=== PATIENT | female | born 1965 | race Caucasian/White ===

== ENCOUNTER → 2018-04-25 | Outpatient (CLI) | payer BC ==
[~2018-04-25] MED LIST: EST1.25T PO; FEXO1TAB40 PO; HYDR-3729 PO; IBUP-1773 PO
--- NOTE | 2018-04-25 17:38 | Diagnostic Imaging Report ---
INDICATION: Routine screening. Comparison is made with prior study from 07/26/2016 and 10/07/2012. 2-D and 3-D bilateral screening mammography was performed. The current study was also evaluated with a Computer Aided Detection (CAD) system. FINDINGS: Both breasts remain heterogeneously dense, limiting the sensitivity of mammography. The parenchymal pattern is stable. No mass or malignant-appearing microcalcifications are seen. The axillae are unremarkable. IMPRESSION: No mammographic features suspicious for malignancy are identified. ACR BI-RADS Category 1: Negative. Result letter will be mailed to the patient. Note: At least 10% of breast cancer is not imaged by mammography. Dictated by: Dictated on workstation # [id number]
== END ==
LOC: RAD 13:10
PROVIDERS: ATTEND Internal Medicine
DX: Z12.31 Encounter for screening mammogram for malignant neoplasm of breast (principal)
CPT/HCPCS: 77067

== ENCOUNTER 2018-05-06 15:25 | Outpatient (CLI) | payer BC | END 2018-05-06 15:57 | disposition home or self-care (01) | LOC: SLEEP 15:25 | PROVIDERS: ATTEND Otolaryngology Otolaryngology/Facial Plastic Surgery | DX: G47.33 Obstructive sleep apnea (adult) (pediatric) (principal) ==

== ENCOUNTER → 2018-05-24 | Outpatient (CLI) | payer BC ==
--- NOTE | 2018-05-24 16:12 | Diagnostic Imaging Report ---
INDICATION: Pelvic pain. TECHNIQUE: Multiple real-time grayscale images were obtained over the pelvis in various projections endovaginally. FINDINGS: The uterus measures 10.2 x 6.4 x 7.5 cm. There are multiple fibroids in the uterus. Largest is seen posteriorly and measures 4.5 cm. Second largest is seen anteriorly and measures 3.1 cm. There is a third anteriorly measuring 1.3 cm. Endometrial thickness is 8 mm. Neither ovary is visualized. There are no obvious adnexal masses. There is no free pelvic fluid. IMPRESSION: Fibroid uterus as described, otherwise unremarkable pelvic ultrasound apart from nonvisualization of the ovaries. Dictated by: Dictated on workstation # [id number]
== END ==
LOC: RAD 14:52
PROVIDERS: ATTEND Obstetrics & Gynecology
DX: D25.9 Leiomyoma of uterus, unspecified (principal); Z68.35 Body mass index [BMI] 35.0-35.9, adult; Z78.0 Asymptomatic menopausal state
CPT/HCPCS: 76830; 76856

== ENCOUNTER 2018-08-15 12:51 | Outpatient (CLI) | payer BC ==
[~2018-08-15] VITALS: Ht 167.6 cm; Wt 100.4 kg
[2018-08-15] MEDS ORDERED: FEXO1TAB43 PO (13:04)
[2018-08-15] MEDS ORDERED: MELA1TAB8 PO (13:04)
[2018-08-15] MEDS ORDERED: MULT-35 PO (13:04)
[2018-08-15 13:08] VITALS: BP 144/89
[2018-08-15 13:58] LABS: BASOPHILS % (AUTO) 1 % (0-10); EOSINOPHILS # (AUTO) 0.4 10^3/uL (0.0-0.3); EOSINOPHILS % (AUTO) 4 % (0-10); HEMATOCRIT 41 % (35-52); HEMOGLOBIN 13.7 G/DL (11.5-16.0); LYMPHOCYTES # (AUTO) 2.4 X 10^3 (1.0-4.0); LYMPHOCYTES % (AUTO) 27 % (12-44); MEAN CORPUSCULAR HEMOGLOBIN 30 PG (25-34); MEAN CORPUSCULAR HGB CONC 34 G/DL (32-36); MEAN CORPUSCULAR VOLUME 91 FL (80-99); MEAN PLATELET VOLUME 9.9 FL (7.4-10.4); MONOCYTES # (AUTO) 0.5 X 10^3 (0.0-1.0); MONOCYTES % (AUTO) 6 % (0-12); NEUTROPHILS # (AUTO) 5.5 X 10^3 (1.8-7.8); NEUTROPHILS % (AUTO) 63 % (42-75); PLATELET COUNT 299 10^3/uL (130-400); RED CELL DISTRIBUTION WIDTH 12.7 % (10.0-14.5); WHITE BLOOD COUNT 8.8 10^3/uL (4.3-11.0)
== END 2018-08-15 14:25 | disposition home or self-care (01) ==
LOC: PREOP 12:51
PROVIDERS: ATTEND Surgery
DX: Z01.812 Encounter for preprocedural laboratory examination (principal); Z11.2 Encounter for screening for other bacterial diseases; R10.9 Unspecified abdominal pain; D25.0 Submucous leiomyoma of uterus
CPT/HCPCS: 36415; 85025; 86850; 86900; 86901; 87081

== ENCOUNTER 2018-08-22 06:00 | Day surgery (SDC) | payer BC ==
[~2018-08-22] VITALS: Ht 167.6 cm; Wt 100.4 kg
[~2018-08-22 06:00] MED LIST changes: +FEXO1TAB43 PO; +MELA1TAB8 PO; +MULT-35 PO
[2018-08-22 06:15] VITALS: BP 118/77
[2018-08-22] MEDS ORDERED: ONDANSETRON 4 MG/2 ML (SDV) Z0FRAN ONE ×3 (06:32→09:00)
[2018-08-22] MEDS ORDERED: proPOfol 200 MG/20 ML (DIPRIVAN) VIAL IV ONE (06:32)
[2018-08-22] MEDS ORDERED: LIDOCAINE PF 2% 5 ML (XYLOCAINE) VIAL ONE (06:32)
[2018-08-22] MEDS ORDERED: ROCURONIUM 10 MG/ML 5 ML SYRINGE IV ONE (06:32)
[2018-08-22] MEDS ORDERED: DEXAMETHASONE 10 MG/ML (DECADRON) 1 ML VIAL ONE (06:32)
[2018-08-22] MEDS ORDERED: SEVOFLURANE (ULTANE) 15 ML INHAL SOLN ONE ×8 (06:32→09:07)
[2018-08-22] MEDS ORDERED: MIDAZOLAM 2 MG/2 ML (VERSED) VIAL ONE (06:33)
[2018-08-22] MEDS ORDERED: fentaNYL INJECTION 100 MCG/2 ML AMP ONE (06:33)
[2018-08-22] MEDS ORDERED: FAMOTIDINE 20MG/2ML IV (PEPCID) ONE (06:40)
[2018-08-22] MEDS ORDERED: SCOPOLAMINE 1.5 MG (TRANSDERM-SCOP) PATCH ONE (06:40)
[2018-08-22] MEDS ORDERED: ceFAZolin 2 GM IV Premixed 50 ML ONE (06:41)
[2018-08-22] MEDS ORDERED: metroNIDAZOLE 500MG/100ML IVPB 100 ML ONE (06:41)
[2018-08-22] MEDS ORDERED: FAMOTIDINE 20MG/2ML IV (PEPCID) IV ONE (06:45)
[2018-08-22] MEDS ORDERED: BUPIVACAINE 0.25% 30 ML (SENSORCAINE) VIAL ONE (06:45)
[2018-08-22] MEDS ORDERED: ONDANSETRON 4 MG/2 ML (SDV) Z0FRAN IV ONE (06:45)
[2018-08-22] MEDS ORDERED: SCOPOLAMINE 1.5 MG (TRANSDERM-SCOP) PATCH TD ONE (07:00)
--- NOTE | 2018-08-22 07:02 | Progress Note-Pre Operative ---
Pre-Operative Progress Note H&P Reviewed The H&P was reviewed, patient examined and no changes noted. Date Seen by Provider: Aug 22, 2018 Time Seen by Provider: 06:55 Date H&P Reviewed: Aug 22, 2018 Time H&P Reviewed: 06:55 Pre-Operative Diagnosis: CPP, Fibroid uterus PAOLA MINER DO Aug 22, 2018 7:02 am
[2018-08-22] MEDS ORDERED: LACTATED RINGERS 1,000 ML IV PRN (07:13)
[2018-08-22] MEDS ORDERED: LACTATED RINGERS 1,000 ML IV SCH ×2 (07:13→09:25)
[2018-08-22] MEDS ORDERED: ceFAZolin 2 GM IV Premixed 50 ML IV ONE (07:15)
[2018-08-22] MEDS ORDERED: metroNIDAZOLE 500MG/100ML IVPB 100 ML IV ONE (07:15)
[2018-08-22] MEDS ORDERED: GLYCOPYRROLATE 0.2 MG/ML (ROBINUL) 2 ML VIAL ONE (08:04)
[2018-08-22] MEDS ORDERED: NEOSTIGMINE 1 MG/ML 5 ML SYRINGE ONE (08:05)
[2018-08-22] MEDS ORDERED: KETOROLAC 30 MG/ML VIAL ONE (09:00)
[2018-08-22] MEDS ORDERED: morphine INJ 10 MG/ML 1ML (SYR OR VIAL) ONE (09:00)
[2018-08-22] MEDS: KETOROLAC 30 MG/ML VIAL IV PRN ×2 (09:05→17:01)
--- NOTE | 2018-08-22 09:27 | Discharge Inst-Women's Service ---
Discharge Inst-Women's Serv Depart Medication/Instructions New, Converted or Re-Newed RX: RX on Chart Consults/Follow Up Additional Follow Up: Yes Orders/Referrals Dr. Vincent in 7-10 days and in 8 weeks Activity Activity: Activity as Tolerated Driving Instructions: No Driving for 1 Week NO SMOKING: NO SMOKING Nothing Inside Vagina: No Douching, No [place], No Tampons Diet Discharge Diet: No Restrictions Symptoms to Report to : Bleeding Excessive, Pain Increased, Fever Over 101 Degrees F, Vaginal Bleeding Increase, Questions/Concerns For Any Problems or Questions: Contact Your Physician Skin/Wound Care Infection Signs and Symptoms: Increased Redness, Foul Odor of Wound, Increased Drainage, Skin Itchy or Has a Rash, Increased Swelling, Temperature Above 101 F Operative Area Clean and Dry: Keep Incision Clean/Dry Stitches/Yessy/Dermabond: Dermabond, Care of Stitches Bathing Instructions: PAOLA Laws DO Aug 22, 2018 09:27
[2018-08-22] MEDS ORDERED: IBUP-844 PO (09:29)
[2018-08-22] MEDS ORDERED: DOCU100C37 PO (09:29)
[2018-08-22] MEDS ORDERED: SIME80TA16 PO (09:29)
[2018-08-22] MEDS ORDERED: HYDR-34 PO (09:29)
[2018-08-22] MEDS ORDERED: CHLORASEPTIC LOZENGE MM PRN (09:30)
[2018-08-22] MEDS ORDERED: DOCUSATE SODIUM 100 MG (COLACE) CAP PO PRN (09:30)
[2018-08-22] MEDS ORDERED: SIMETHICONE 80 MG (MYLICON) CHEW PO PRN (09:30)
[2018-08-22] MEDS ORDERED: ZOLPIDEM 5 MG (AMBIEN) TAB PO PRN (09:30)
[2018-08-22] MEDS ORDERED: MEPERIDINE (DEMEROL) INJ 50 MG/ML IVP ONE (09:30)
[2018-08-22] MEDS ORDERED: morphine INJ 10 MG/ML 1ML (SYR OR VIAL) IVP ONE (09:30)
[2018-08-22] MEDS ORDERED: ONDANSETRON 4 MG/2 ML (SDV) Z0FRAN IVP PRN (09:30)
[2018-08-22] MEDS ORDERED: ONDANSETRON 4 MG/2 ML (SDV) Z0FRAN IV PRN (09:30)
[2018-08-22] MEDS ORDERED: ANTACID SUSP 30 ML UDC (MYLANTA) PO PRN (09:30)
[2018-08-22] MEDS ORDERED: HYDROmorphone 2 MG/ML VIAL (DILAUDID) ONE (09:48)
[2018-08-22] MEDS ORDERED: HYDROmorphone 2 MG/ML VIAL (DILAUDID) IV ONE (10:00)
[2018-08-22 10:40] VITALS: BP 117/71
[2018-08-22 12:15] VITALS: BP 119/78
[2018-08-22 17:03] VITALS: BP 132/84
--- NOTE | 2018-08-22 20:38 | OPERATIVE REPORT ---
DATE OF SERVICE: 08/22/2018 PREOPERATIVE DIAGNOSES: 1. A 53-year-old female with chronic pelvic pain. 2. Dysmenorrhea. 3. Menorrhagia. POSTOPERATIVE DIAGNOSES: 1. A 53-year-old female with chronic pelvic pain. 2. Dysmenorrhea. 3. Menorrhagia. 4. Fibroid uterus. PROCEDURES PERFORMED: Robotic-assisted total laparoscopic hysterectomy and bilateral salpingo-oophorectomy. SURGEON: David Miner DO. SOLUTION DESIGN AND ANALYSIS MANAGER: SHLOMO Miller. ANESTHESIA: General endotracheal. ESTIMATED BLOOD LOSS: 50 mL. URINE OUTPUT: 100 mL clear at the end of the procedure. FLUIDS: 1500 mL of lactated Ringer solution. FINDINGS: A bulky enlarged uterus with a large pedunculated fibroid in the uterine fundus. Dense adhesions of the ovary to the sides of the uterus as well as the broad ligament as well as adhesions of the ovary to the lateral pelvic sidewall. SPECIMEN SENT: Uterus, bilateral fallopian tubes and ovaries. INDICATIONS: This 53-year-old female was a consultation to my office for chronic pelvic pain and heavy menstrual cycles that is carmen to postmenopausal. In preoperative consultation, she was found to be not menopausal yet; however, was continuing to have chronic pelvic pain. We discussed with the patient proceeding with hysterectomy due to the etiology of this pain being likely due to these large fibroid tumors that were able to be seen on imaging studies. Risks of the procedure were discussed with the patient in detail in the preoperative area including risk of bleeding, infection, damage to surrounding structures including but not limited to bowel, bladder, ureter, kidneys, possible need for reoperation, possible risk from anesthesia and even and need for potential future operations. After everything was discussed with the patient in detail, we discussed also the preservation of at least one ovary; however, the decision was made intraoperatively due to dense adhesions and the bleeding that was being ran into during the ovarian sidewall dissection to proceed with removal of bilateral ovaries due to the patient's age of 53 and the proximity to menopause. The patient was okay with this in the preoperative area and was agreeable for me to make a decision depending on my findings. Once that questions was answered as well as consent was obtained, the patient was taken to the operating room. OPERATIVE REPORT IN DETAIL: Once in the operating room, general anesthesia was found to be adequate, she was placed in dorsal lithotomy position, prepped and draped in normal sterile fashion. I first placed a Hernandez catheter using sterile technique. A weighted speculum was inserted to the patient's vagina. A right angle retractor was used to visualize the cervix, which was grasped at 12 o'clock position using a long single-tooth tenaculum. I then placed an #0 Vicryl suture to the anterior lip of the cervix and gently sound the uterine cavity using a uterine sound, was found to be 8 cm. I then removed my tenaculum and used my suture as my retraction point. I then gently dilated the cervix using Hegar dilators to approximately 8 mm at which point, I selected an 8 cm Lorena uterine manipulator tip and a 4 cm colpotomy ring placing this within the endometrial cavity and deployed the balloon and advanced the colpotomy ring around the vaginal fornix. This allows me to manipulate the uterus on bimanual examination, which was adequate. I then performed a change of gloves and took my attention to the abdomen where infraumbilically, I infiltrated this area using 0.25% Marcaine to make an 8 mm incision using a knife and direct a Veress needle through the incision through which correct placement was confirmed using a saline drop test. I proceeded with insufflation using CO2 gas and an opening pressure of 5 mmHg was noted. I then proceeded to maximum pressure of 15 mmHg, at which point I removed the Veress needle and introduced a blunt 8 mm da Carmelina camera trocar. Once this was in place, I am able to confirm intraperitoneal placement using the da Carmelina laparoscope. A brief scanning of the upper abdominal anatomy appears grossly normal. Having the patient placed in steep Trendelenburg, I am able to visualize all the pelvic anatomy as described in my findings above. I made the decision at that point that I am going to proceed with a bilateral salpingo-oophorectomy. I then placed two lateral trocars, both 8 mm trocars approximately 10 cm lateral to my infraumbilical trocar. The skin was then infiltrated using 0.25% Marcaine to make an 8 mm incision and the trocars were placed under direct visualization of the laparoscope. Once these are both in place, I bring in the da Carmelina robot and docked in the appropriate fashion. I used the fenestrated bipolar graspers in the left hand and monopolar connie in the right hand to perform the following dissection. I first isolated the infundibulopelvic ligament on the left side having to lyse some adhesions in the process. Once it is identified and the ureter was identified as well and found to be clear of my dissection plane, I then grasped the infundibulopelvic ligament, bipolar cauterized and transected using the monopolar connie. I then took this dissection down the posterior leaflet of the broad ligament until I encountered the round ligament in which case I bipolar cauterized and transected this using the monopolar connie and then I am able to grasp the entire broad ligament using my graspers and bipolar cauterized and transected using monopolar connie. I take my anterior leaflet dissection around to the anterior vaginal fornix and my posterior leaflet dissection around to the posterior vaginal fornix, which allows me to skeletonize the uterine vessels laterally. I am able to bipolar cauterized and transect them using the monopolar connie and dissect them carefully staying clear of the ureter, which I have in my vision throughout the entire dissection process. I then performed the same dissection on the right side. Once this was done, I created a colpotomy at the 12 o'clock position using the monopolar connie and take this circumferentially around the vaginal fornix amputating the cervix, uterus, bilateral fallopian tubes and ovaries from the vagina. The specimen was then removed through the vagina. I then proceeded with closing the vaginal cuff using 2-0 Vicryl suture in a [id number] fashion, colposuspending them to the uterosacral ligaments. I then closed the remainder of the vaginal cuff using 2-0 V-Loc in a running fashion, after which there was no active bleeding noted from any of my dissection planes. I then copiously irrigated the pelvis using normal saline. There was no active bleeding noted from any of my dissection planes. I undocked the da Carmelina robot and proceeded with the remainder of the case laparoscopically. I placed FloSeal hemostatic agent over all of my planes of dissection, which ensured excellent postoperative hemostasis. I then had the patient taken out of steep Trendelenburg and removed the lateral trocars under direct visualization of the laparoscope. Once this was done, I used my infraumbilical trocar to release insufflation and introduced 10 mL of 0.25% Marcaine into the peritoneal cavity for postoperative pain management. I then removed this trocar as well. I then closed the skin using 4-0 Monocryl in interrupted subcuticular stitches. Dermabond was applied to the incision and Band-Aids were placed over these. All instruments were removed from the patient's vagina except for the Hernandez catheter, which was left in place. Two grams of Ancef and 500 mg of Flagyl were given preoperatively for infection prophylaxis. The patient tolerated the procedure well and sent to recovery area in stable condition. Lap and sponge counts were correct at the end of the procedure. Instrument count was correct as well. Job ID: [id number] DocumentID: [id number] Dictated Date: 08/22/2018 12:18:09 Stenciler Date: 08/22/2018 18:39:37 Dictated By: DAVID MINER DO
[2018-08-22 20:47] VITALS: BP 112/76
[2018-08-22] MEDS: HYDROcodone/APAP 7.5 MG/325 MG (LORTAB, LORCET PLUS) TABLET PO PRN (20:47)
[2018-08-23 00:16] VITALS: BP 95/58
[2018-08-23] MEDS ORDERED: IBUPROFEN 600 MG (MOTRIN) TAB PO PRN (02:15)
[2018-08-23 03:40] VITALS: BP 93/59
[2018-08-23 09:15] VITALS: BP 102/63
--- NOTE | 2018-08-23 09:21 | Anesthesia-General Post-Op ---
General Patient Condition Mental Status/LOC: Same as Preop Cardiovascular: Satisfactory Nausea/Vomiting: Absent Respiratory: Satisfactory Pain: Controlled Complications: Absent Post Op Complications Complications None Follow Up Care/Instructions Patient Instructions None needed. Anesthesia/Patient Condition Patient Condition Patient is doing well, no complaints, stable vital signs, no apparent adverse anesthesia problems. No complications reported per nursing. MALLIKA BARBER CRNA Aug 23, 2018 09:21
[2018-08-23] MEDS: HYDROcodone/APAP 7.5 MG/325 MG (LORTAB, LORCET PLUS) TABLET PO PRN (09:27)
[2018-08-23 11:20] VITALS: BP 102/63
[2018-08-23] MEDS ORDERED: FLU QUADRIvalent (5+ YOA) 2018-2019 (AFLURIA) 0.5 ML IM ONE (14:30)
== END 2018-08-23 11:20 | disposition home or self-care (01) ==
LOC: SDC 06:00 → WS 10:18 → SDC 08-23 11:20
PROVIDERS: ATTEND Obstetrics & Gynecology
DX: N94.6 Dysmenorrhea, unspecified (principal); N92.0 Excessive and frequent menstruation with regular cycle; N80.0 Endometriosis of uterus; N80.1 Endometriosis of ovary; N83.01 Follicular cyst of right ovary; N83.202 Unspecified ovarian cyst, left side; D25.1 Intramural leiomyoma of uterus; D25.2 Subserosal leiomyoma of uterus; K21.9 Gastro-esophageal reflux disease without esophagitis; E66.9 Obesity, unspecified; Z68.35 Body mass index [BMI] 35.0-35.9, adult
CPT/HCPCS: 86850; 86900; 86901; 88307; 94664

== ENCOUNTER → 2019-05-30 | Outpatient (CLI) | payer BC ==
[~2019-05-30] MED LIST changes: +DOCU100C37 PO; +HYDR-34 PO; +IBUP-844 PO; +SIME80TA16 PO
[2019-05-30 10:31] LABS: BASOPHILS % (AUTO) 1 % (0-10); EOSINOPHILS # (AUTO) 0.2 10^3/uL (0.0-0.3); EOSINOPHILS % (AUTO) 3 % (0-10); HEMATOCRIT 43 % (35-52); LYMPHOCYTES # (AUTO) 3.2 X 10^3 (1.0-4.0); LYMPHOCYTES % (AUTO) 40 % (12-44); MEAN CORPUSCULAR HEMOGLOBIN 30 PG (25-34); MEAN CORPUSCULAR HGB CONC 33 G/DL (32-36); MEAN CORPUSCULAR VOLUME 90 FL (80-99); MEAN PLATELET VOLUME 9.5 FL (7.4-10.4); MONOCYTES # (AUTO) 0.5 X 10^3 (0.0-1.0); MONOCYTES % (AUTO) 7 % (0-12); NEUTROPHILS % (AUTO) 50 % (42-75); PLATELET COUNT 296 10^3/uL (130-400); RED CELL DISTRIBUTION WIDTH 13.1 % (10.0-14.5)
[2019-05-30 10:53] LABS: ALBUMIN 4.2 GM/DL (3.2-4.5); BILIRUBIN,TOTAL 0.6 MG/DL (0.1-1.0); CALCIUM 10.1 MG/DL (8.5-10.1); CREATININE SERUM 0.97 MG/DL (0.60-1.30); POTASSIUM 3.9 MMOL/L (3.6-5.0); TOTAL PROTEIN 7.7 GM/DL (6.4-8.2)
--- NOTE | 2019-06-02 08:56 | Diagnostic Imaging Report ---
Indication: Routine screening. Comparison is made with prior mammogram from 04/25/2018 and 07/26/2016. 2-D and 3-D bilateral screening mammography was performed with CAD. Scattered fibroglandular densities are identified bilaterally. The parenchymal pattern is stable. No mass or malignant-appearing microcalcifications are seen. The axilla are unremarkable. Impression: BI-RADS category 1 No mammographic features suspicious for malignancy are identified. ACR BI-RADS Category 1: Negative. Result letter will be mailed to the patient. Note: At least 10% of breast cancer is not imaged by mammography. Dictated by: Dictated on workstation # [id number]
== END ==
LOC: RAD 10:14
PROVIDERS: ATTEND Internal Medicine
DX: Z00.00 Encounter for general adult medical examination without abnormal findings (principal); Z12.31 Encounter for screening mammogram for malignant neoplasm of breast; E78.00 Pure hypercholesterolemia, unspecified; E78.1 Pure hyperglyceridemia; R73.9 Hyperglycemia, unspecified
CPT/HCPCS: 36415; 77067; 80053; 80061; 83036; 84443; 85025

== ENCOUNTER → 2019-09-17 | Outpatient (CLI) | payer BC ==
[2019-09-17 15:19] LABS: BASOPHILS % (AUTO) 0 % (0-10); EOSINOPHILS # (AUTO) 0.2 10^3/uL (0.0-0.3); EOSINOPHILS % (AUTO) 3 % (0-10); HEMATOCRIT 40 % (35-52); HEMOGLOBIN 13.1 G/DL (11.5-16.0); LYMPHOCYTES # (AUTO) 2.7 X 10^3 (1.0-4.0); LYMPHOCYTES % (AUTO) 38 % (12-44); MEAN CORPUSCULAR HEMOGLOBIN 30 PG (25-34); MEAN CORPUSCULAR HGB CONC 33 G/DL (32-36); MEAN CORPUSCULAR VOLUME 90 FL (80-99); MEAN PLATELET VOLUME 9.6 FL (7.4-10.4); MONOCYTES # (AUTO) 0.4 X 10^3 (0.0-1.0); MONOCYTES % (AUTO) 6 % (0-12); NEUTROPHILS # (AUTO) 3.8 X 10^3 (1.8-7.8); NEUTROPHILS % (AUTO) 53 % (42-75); PLATELET COUNT 250 10^3/uL (130-400); RED CELL DISTRIBUTION WIDTH 12.1 % (10.0-14.5); WHITE BLOOD COUNT 7.1 10^3/uL (4.3-11.0)
[2019-09-17 15:45] LABS: ALBUMIN 4.3 GM/DL (3.2-4.5); BILIRUBIN,TOTAL 0.4 MG/DL (0.1-1.0); CALCIUM 9.8 MG/DL (8.5-10.1); POTASSIUM 4.1 MMOL/L (3.6-5.0); TOTAL PROTEIN 7.5 GM/DL (6.4-8.2)
[2019-09-17 15:53] LABS: ERYTHROCYTE SEDIMENTATION RATE 21 MM/HR (0-30)
== END ==
LOC: LAB 15:04
PROVIDERS: ATTEND Internal Medicine
DX: Z00.00 Encounter for general adult medical examination without abnormal findings (principal); R70.0 Elevated erythrocyte sedimentation rate
CPT/HCPCS: 36415; 80053; 82550; 85025; 85652

== ENCOUNTER → 2019-10-15 | Outpatient (CLI) | payer BC ==
[2019-10-15 17:11] LABS: CHOLESTEROL 167 MG/DL (< 200); HDL CHOLESTEROL 60 MG/DL (40-60); TRIGLYCERIDES 259 MG/DL (<150); VLDL CHOLESTEROL 52 MG/DL (5-40)
== END ==
LOC: LAB 04:41
PROVIDERS: ATTEND Internal Medicine
DX: E78.2 Mixed hyperlipidemia (principal)
CPT/HCPCS: 36415; 80061

== ENCOUNTER → 2020-09-02 | Outpatient (CLI) | payer BC ==
[2020-09-02 09:38] LABS: BASOPHILS # (AUTO) 0.1 10^3/uL (0.0-0.1); BASOPHILS % (AUTO) 1 % (0-10); EOSINOPHILS # (AUTO) 0.3 10^3/uL (0.0-0.3); EOSINOPHILS % (AUTO) 4 % (0-10); HEMATOCRIT 43 % (35-52); LYMPHOCYTES % (AUTO) 31 % (12-44); MEAN CORPUSCULAR HEMOGLOBIN 30 pg (25-34); MEAN CORPUSCULAR HGB CONC 33 g/dL (32-36); MEAN CORPUSCULAR VOLUME 91 fL (80-99); MEAN PLATELET VOLUME 9.5 fL (9.0-12.2); MONOCYTES # (AUTO) 0.4 10^3/uL (0.0-1.0); MONOCYTES % (AUTO) 7 % (0-12); NEUTROPHILS # (AUTO) 3.6 10^3/uL (1.8-7.8); NEUTROPHILS % (AUTO) 57 % (42-75); PLATELET COUNT 273 10^3/uL (130-400); WHITE BLOOD COUNT 6.3 10^3/uL (4.3-11.0)
[2020-09-02 10:02] LABS: ALBUMIN 4.3 GM/DL (3.2-4.5); BILIRUBIN,TOTAL 0.6 MG/DL (0.1-1.0); CALCIUM 9.6 MG/DL (8.5-10.1); CREATININE SERUM 0.98 MG/DL (0.60-1.30); POTASSIUM 4.5 MMOL/L (3.6-5.0); TOTAL PROTEIN 7.8 GM/DL (6.4-8.2)
--- NOTE | 2020-09-02 12:40 | Diagnostic Imaging Report ---
Digital mammogram. Bilateral screening This study was compared to the prior exam of 05/30/2019, 04/25/2018 and 07/26/2016. At this time there are no current complaints. The current study was also evaluated with a Computer Aided Detection (CAD) system. FINDINGS: There are scattered fibroglandular densities in both breasts which could obscure a lesion. Overall, there does not appear to have been any significant change when compared to the prior exam. No primary or secondary sign of malignancy is noted. IMPRESSION: There is no radiographic evidence for malignancy ACR BI-RADS Category 1: Negative. Result letter will be mailed to the patient. Note: At least 10% of breast cancer is not imaged by mammography. Dictated by: Dictated on workstation # [id number]
== END ==
LOC: RAD 08:56
PROVIDERS: ATTEND Internal Medicine
DX: Z12.31 Encounter for screening mammogram for malignant neoplasm of breast (principal); Z00.00 Encounter for general adult medical examination without abnormal findings; E78.00 Pure hypercholesterolemia, unspecified; E78.1 Pure hyperglyceridemia
CPT/HCPCS: 36415; 77063; 77067; 80053; 80061; 84443; 85025

== ENCOUNTER → 2020-09-14 | Outpatient (CLI) | payer BC | LOC: CARD 08:40 | PROVIDERS: ATTEND Internal Medicine | DX: R07.9 Chest pain, unspecified (principal) | CPT/HCPCS: 93306 ==

== ENCOUNTER → 2020-09-21 | Outpatient (CLI) | payer BC ==
[~2020-09-21] VITALS: Ht 167 cm; Wt 95.0 kg
[~2020-09-21] MED LIST changes: +CATHETER FLUSH 10 ML SYR IV PRN
[2020-09-21 08:37] VITALS: BP 136/87
--- NOTE | 2020-09-22 13:16 | Cardiology Stress Test Report ---
Stress Test Report Date of Procedure/Referring: Date of Procedure: Sep 22, 2020 PCP Arianna Delarosa DO Admitting Physician Arianna Delarosa DO Indications: Chest pain Baseline Vital Signs Vital Signs Date Time Temp Pulse Resp B/P (MAP) Pulse Ox O2 Delivery O2 Flow Rate FiO2 09/21/20 08:37 83 18 136/87 (103) 99 Room Air Summary: Patient receive a resting and stress dose of Myoview, images were acquired and reviewed in the short axis view, horizontal long axis view and vertical long axis view. TID: 0.96 SSS: 0 SDS: 0 EF: 73 1. No ischemia or infarction on SPECT images 2. Normal left ventricular size, EF 73 percent ROYCE DAMON MD Sep 22, 2020 13:16
== END ==
LOC: CARD 07:00
PROVIDERS: ATTEND Internal Medicine
DX: R07.9 Chest pain, unspecified (principal)
CPT/HCPCS: 78452; 93017; A9502

== ENCOUNTER → 2020-12-16 | Outpatient (CLI) | payer BC ==
[~2020-12-16] MED LIST changes: -CATHETER FLUSH 10 ML SYR IV PRN; +MELA1TAB51 PO; -MELA1TAB8 PO
--- NOTE | 2020-12-16 18:03 | Diagnostic Imaging Report ---
PA and lateral chest at 4:09 PM INDICATION: Shortness of breath COMPARISON: There are no prior exams available for comparison. FINDINGS: The heart size is within normal limits. The lungs are clear. The osseous structures, where visualized, are intact. IMPRESSION: Negative for active disease. Dictated by: Dictated on workstation # [id number]
== END ==
LOC: RAD FS 16:06
PROVIDERS: ATTEND Otolaryngology Otolaryngology/Facial Plastic Surgery
DX: R05 Cough (principal); R06.02 Shortness of breath
CPT/HCPCS: 71046

== ENCOUNTER → 2020-12-29 | Outpatient (CLI) | payer BC ==
[~2020-12-29] MED LIST changes: +CATHETER FLUSH 10 ML SYR IV PRN; +HOLD METFORMIN - RECEIVED CONTRAST 20 ML VIAL IV SCH; +IOHEXOL 350 MG/ML 100 ML (OMNIPAQUE 350) VIAL IV ONE; +NS 100 ML (IVPB) BAG IV ONE
[2020-12-29 13:14] LABS: CREATININE SERUM 1.02 MG/DL (0.60-1.30)
--- NOTE | 2020-12-29 13:58 | Diagnostic Imaging Report ---
PROCEDURE: CT angiography of the chest with contrast. TECHNIQUE: Multiple contiguous axial images were obtained through the chest after uneventful bolus administration of intravenous contrast. 3D reconstructed CTA MIP acquisitions were also performed. Auto Exposure Controls were utilized during the CT exam to meet ALARA standards for radiation dose reduction. INDICATION: Shortness of breath and chest pain. COMPARISON: No prior studies are available for comparison. FINDINGS: Evaluation of the pulmonary arterial system is without evidence of thromboembolism. No filling defects are seen within central, lobar, or segmental branches. The thoracic aorta is normal in caliber. No dissection is identified. No pericardial or pleural fluid is identified. No pulmonary infiltrates, nodules, or masses are seen. Upper abdomen is unremarkable. IMPRESSION: No evidence of pulmonary embolism or thoracic aortic dissection. No acute feature is detected. Dictated by: Dictated on workstation # [id number]
== END ==
LOC: RAD 13:45
PROVIDERS: ATTEND Internal Medicine
DX: R06.02 Shortness of breath (principal); E78.2 Mixed hyperlipidemia; I27.20 Pulmonary hypertension, unspecified
CPT/HCPCS: 36415; 71275; 82565; 84520

== ENCOUNTER → 2021-01-03 | Outpatient (CLI) | payer BC ==
[~2021-01-03] MED LIST changes: -CATHETER FLUSH 10 ML SYR IV PRN; -HOLD METFORMIN - RECEIVED CONTRAST 20 ML VIAL IV SCH; -IOHEXOL 350 MG/ML 100 ML (OMNIPAQUE 350) VIAL IV ONE; -NS 100 ML (IVPB) BAG IV ONE
== END ==
LOC: RT 15:30
PROVIDERS: ATTEND Otolaryngology Otolaryngology/Facial Plastic Surgery
DX: R05 Cough (principal); R06.02 Shortness of breath

== ENCOUNTER → 2021-02-02 | Outpatient (CLI) | payer BC ==
[~2021-02-02] MED LIST changes: +BARIUM for suspension 96% w/w (Vanilla Silq Medium Density) PO ONE; +BARIUM for suspension 98% w/w (Vanilla Silq High Density) PO ONE
--- NOTE | 2021-02-02 13:13 | Diagnostic Imaging Report ---
Indication: Dysphagia. Patient ingested effervescent crystals as well as thin and thick barium and imaging of the esophagus was performed in multiple obliquities. Total of 59 seconds of fluoroscopy time was utilized. Preliminary radiograph of the chest is unremarkable. The esophagus has a smooth contour. No mass or strictures identified. No hiatal hernia or gastroesophageal reflux was demonstrated. IMPRESSION: Unremarkable esophagram. Dictated by: Dictated on workstation # [id number]
== END ==
LOC: RAD 10:03
PROVIDERS: ATTEND Surgery
DX: R13.10 Dysphagia, unspecified (principal)
CPT/HCPCS: 74220

== ENCOUNTER 2021-03-22 05:38 | Outpatient (RCR) | payer BC ==
[~2021-03-22] VITALS: Ht 167.7 cm; Wt 95.0 kg
[~2021-03-22 05:38] MED LIST changes: -BARIUM for suspension 96% w/w (Vanilla Silq Medium Density) PO ONE; -BARIUM for suspension 98% w/w (Vanilla Silq High Density) PO ONE
[2021-03-22] MEDS ORDERED: UBID30CA13 PO (13:10)
[2021-03-22] MEDS ORDERED: PANT20TA18 PO (13:10)
[2021-03-22] MEDS ORDERED: L.AC1CAP6 PO (13:10)
[2021-03-22] MEDS ORDERED: PRAV10TA PO (13:10)
[2021-03-22] MEDS ORDERED: ASPI-1238 PO (13:10)
[2021-03-29] MEDS ORDERED: PANT20TA18 PO (09:49)
== END 2021-06-20 | disposition home or self-care (01) ==
LOC: PREOP 05:38
PROVIDERS: ATTEND Surgery
DX: Z01.818 Encounter for other preprocedural examination (principal)

== ENCOUNTER → 2021-03-25 | Outpatient (CLI) | payer BC ==
[~2021-03-25] MED LIST changes: +ASPI-1238 PO; +L.AC1CAP6 PO; +PANT20TA18 PO; +PRAV10TA PO; +UBID30CA13 PO
== END ==
LOC: LAB FS 12:20
PROVIDERS: ATTEND Surgery
DX: Z01.812 Encounter for preprocedural laboratory examination (principal); Z12.11 Encounter for screening for malignant neoplasm of colon; R13.10 Dysphagia, unspecified; Z20.822 Contact with and (suspected) exposure to COVID-19
CPT/HCPCS: 87635

== ENCOUNTER 2021-03-29 08:06 | Day surgery (SDC) | payer BC ==
[~2021-03-29] VITALS: Ht 167.7 cm; Wt 95.0 kg
[2021-03-29] VITALS (8 sets, daily range): BP systolic 110–122; BP diastolic 59–75
[2021-03-29] MEDS ORDERED: LACTATED RINGERS 1,000 ML IV ONE (08:07)
[2021-03-29] MEDS ORDERED: LACTATED RINGERS 1,000 ML IV STA (08:16)
[2021-03-29] MEDS ORDERED: HURRICAINE EXT TUBE (BENZOCAINE) XX PRN (08:30)
[2021-03-29] MEDS ORDERED: PROPOFOL INJECTION 50 ML IV ONE (09:04)
[2021-03-29] MEDS ORDERED: MIDAZOLAM 2 MG/2 ML (VERSED) VIAL ONE (09:04)
--- NOTE | 2021-03-29 09:48 | Progress Note-Post Operative ---
Post-Operative Progess Note Surgeon (s)/Market News Reporter (s) Surgeon VANITA AMARAL DO Market News Reporter: na Pre-Operative Diagnosis dysphagia, screening colon Post-Operative Diagnosis hiatal hernia, normal colon Procedure & Operative Findings Date of Procedure 03/29/21 Procedure Performed/Findings egd c biopsies, colonoscopy Anesthesia Type per electric stove installer Estimated Blood Loss Estimated blood loss (mL): none Specimens/Packing Specimens Removed antrum, ge VANITA AMARAL DO March 29, 2021 09:48
[2021-03-29] MEDS ORDERED: PANT20TA18 PO (09:49)
--- NOTE | 2021-03-29 09:50 | Discharge Inst-Simple/Standard ---
Discharge Inst-Standard Discharge Medications New, Converted or Re-Newed RX: Transmitted to Pharmacy Patient Instructions/Follow Up Plan of Care/Instructions/FU: 2-3 weeks Chasity Activity as Tolerated: Yes Discharge Diet: Regular Diet VANITA AMARAL DO March 29, 2021 09:50
--- NOTE | 2021-03-29 12:37 | OPERATIVE REPORT ---
DATE OF SERVICE: 03/29/2021 PREOPERATIVE DIAGNOSES: Dysphagia, screening colonoscopy. POSTOPERATIVE DIAGNOSES: Hiatal hernia, normal colon. PROCEDURE: EGD with biopsies, colonoscopy. SURGEON: Vanita Gaspar DO ANESTHESIA: Per WAREHOUSE DISTRIBUTION ASSOCIATE. ESTIMATED BLOOD LOSS: None. COMPLICATIONS: None. SPECIMENS: Antrum and GE junction. INDICATIONS: The patient is a 55-year-old female with dysphagia symptoms on occasion and GERD symptoms and needing screening colonoscopy. She understands risks and benefits of procedure and wishes to proceed. Consent was signed in the chart. DESCRIPTION OF PROCEDURE: The patient was taken to the endoscopy suite, placed in left lateral recumbent position. Timeout was performed. Scope was inserted in mouth, down the esophagus, stomach and into the duodenum without difficulty. There were no polyps, masses or ulcerations. Scope was slowly retracted back into the stomach where it was further insufflated. No polyps, masses or ulcerations. Biopsy of the antrum was obtained. Scope was retroflexed noting a small hiatal hernia, no other pathology. Scope was returned to its normal position, slowly withdrawn to distal esophagus. Biopsy of the GE junction was obtained. There were no polyps, masses or ulcerations. Scope was then slowly retracted back to completely remove noting no other pathology. Digital rectal exam was performed. No palpable polyps, masses or ulcerations. Scope was inserted in the rectum and advanced all the way to cecum with minimal difficulty. Prep was adequate. Scope was then slowly retracted back. There were no polyps, masses or ulcerations within the cecum, ascending, transverse, descending and sigmoid colon. Once in the rectum, scope was retroflexed noting no other pathology. Scope was returned to its normal position, slowly withdrawn until completely removed. The patient tolerated procedure well without any complications. She was taken to recovery room in stable condition. RECOMMENDATIONS: The patient's pantoprazole will be switched from 20 mg to 40 mg daily. We will see if this improves her symptoms. The patient will need repeat colonoscopy in 10 years unless family history of colon cancer or history of colon polyps herself. If has any issues prior to that timeframe, she should be reevaluated at that time. Job ID: [id number] DocumentID: [id number] Dictated Date: 03/29/2021 09:53:01 E Business Project Manager Date: 03/29/2021 12:35:41 Dictated By: VANITA GASPAR DO [facility]
--- NOTE | 2021-03-29 13:59 | Anesthesia-General Post-Op ---
MAC Patient Condition Mental Status/LOC: Same as Preop Cardiovascular: Satisfactory Nausea/Vomiting: Absent Respiratory: Satisfactory Pain: Controlled Complications: Absent Post Op Complications Complications None Follow Up Care/Instructions Patient Instructions None needed. Anesthesiology Discharge Order Discharge Order Patient is doing well, no complaints, stable vital signs, no apparent adverse anesthesia problems. No complications reported per nursing. LORI SCHMIDT SSN/SSBN ASSISTANT NAVIGATOR March 29, 2021 13:59
== END 2021-03-29 10:35 | disposition home or self-care (01) ==
LOC: ENDO 08:06
PROVIDERS: ATTEND Surgery
DX: Z12.11 Encounter for screening for malignant neoplasm of colon (principal); K44.9 Diaphragmatic hernia without obstruction or gangrene; K21.00 Gastro-esophageal reflux disease with esophagitis, without bleeding; G43.909 Migraine, unspecified, not intractable, without status migrainosus; E78.5 Hyperlipidemia, unspecified; E66.9 Obesity, unspecified; Z68.33 Body mass index [BMI] 33.0-33.9, adult; Z79.899 Other long term (current) drug therapy

== ENCOUNTER → 2021-09-05 | Outpatient (CLI) | payer BC ==
--- NOTE | 2021-09-06 13:02 | Diagnostic Imaging Report ---
INDICATION: Routine screening. COMPARISON: 09/02/2020 and 05/30/2019. TECHNIQUE: 2D and 3D bilateral screening mammography was performed with CAD. FINDINGS: Both breasts are heterogeneously dense, limiting the sensitivity of mammography. The parenchymal pattern is stable. No mass or malignant-appearing microcalcifications are identified. The axillae are unremarkable. IMPRESSION: No mammographic features suspicious for malignancy are identified. ACR BI-RADS Category 1: Negative. Result letter will be mailed to the patient. Note: At least 10% of breast cancer is not imaged by mammography. Dictated by: Dictated on workstation # [id number]
== END ==
LOC: RAD 14:30
PROVIDERS: ATTEND Internal Medicine
DX: Z12.31 Encounter for screening mammogram for malignant neoplasm of breast (principal)
CPT/HCPCS: 77063; 77067

== ENCOUNTER → 2021-09-12 | Outpatient (CLI) | payer SELFPAY ==
--- NOTE | 2021-09-12 15:58 | Diagnostic Imaging Report ---
INDICATION: Intermittent chest pain and family history of heart disease. CT coronary calcium score study performed with noncontrast images of the heart followed by calculation of calcium score. Dose reduction protocol was used Raw data images demonstrate no mediastinal or hilar adenopathy. Visualized portions of the lung razo show no infiltrates or nodules. The entirety of the lung razo are not imaged. Cardiac calcium score was 0 for left main coronary artery, LAD, circumflex, and right coronary artery. Total score of 0 was given. IMPRESSION: CT cardiac calcium score was 0. Raw data images show no incidental findings. Dictated by: Dictated on workstation # [id number]
== END ==
LOC: RAD FS 13:11
PROVIDERS: ATTEND Internal Medicine
DX: I25.811 Atherosclerosis of native coronary artery of transplanted heart without angina pectoris (principal); Z82.49 Family history of ischemic heart disease and other diseases of the circulatory system
CPT/HCPCS: 75571

== ENCOUNTER → 2022-02-21 | Outpatient (CLI) | payer BC ==
[~2022-02-21] MED LIST changes: +CATHETER FLUSH 10 ML SYR IV PRN; +IOHEXOL 350 MG/ML 100 ML (OMNIPAQUE 350) VIAL IV ONE; +NS 100 ML (IVPB) BAG IV ONE
[2022-02-21 09:13] LABS: BASOPHILS # (AUTO) 0.1 10^3/uL (0.0-0.1); BASOPHILS % (AUTO) 1 % (0-10); EOSINOPHILS # (AUTO) 0.2 10^3/uL (0.0-0.3); EOSINOPHILS % (AUTO) 4 % (0-10); HEMATOCRIT 42 % (35-52); HEMOGLOBIN 13.9 g/dL (11.5-16.0); LYMPHOCYTES # (AUTO) 1.9 10^3/uL (1.0-4.0); LYMPHOCYTES % (AUTO) 34 % (12-44); MEAN CORPUSCULAR HEMOGLOBIN 30 pg (25-34); MEAN CORPUSCULAR HGB CONC 33 g/dL (32-36); MEAN CORPUSCULAR VOLUME 92 fL (80-99); MEAN PLATELET VOLUME 9.5 fL (9.0-12.2); MONOCYTES # (AUTO) 0.4 10^3/uL (0.0-1.0); MONOCYTES % (AUTO) 7 % (0-12); NEUTROPHILS # (AUTO) 3.1 10^3/uL (1.8-7.8); NEUTROPHILS % (AUTO) 54 % (42-75); PLATELET COUNT 272 10^3/uL (130-400); WHITE BLOOD COUNT 5.7 10^3/uL (4.3-11.0)
[2022-02-21 09:36] LABS: ALBUMIN 4.1 GM/DL (3.2-4.5); BILIRUBIN,TOTAL 0.3 MG/DL (0.1-1.0); CALCIUM 9.6 MG/DL (8.5-10.1); CREATININE SERUM 0.97 MG/DL (0.60-1.30); POTASSIUM 4.5 MMOL/L (3.6-5.0); TOTAL PROTEIN 7.5 GM/DL (6.4-8.2)
[2022-02-21 09:55] LABS: ERYTHROCYTE SEDIMENTATION RATE 13 MM/HR (0-30)
--- NOTE | 2022-02-21 12:00 | Diagnostic Imaging Report ---
EXAMINATION: CT chest with intravenous contrast. TECHNIQUE: Multiple contiguous axial images were obtained through the chest after the uneventful administration of intravenous contrast. All CT scans use one or more of the following dose optimizing techniques: Automated exposure control, MA and/or KvP adjustment based on patient size and exam type or iterative reconstruction. HISTORY: Left chest and arm numbness. COMPARISON: 12/29/2020. FINDINGS: There is no edema or pneumonia. No pleural effusion. No pneumothorax. No suspicious nodules. There is no axillary or supraclavicular lymphadenopathy. There is no mediastinal lymphadenopathy. Heart size is normal. There are no coronary artery calcifications. No pericardial effusion. Aorta is normal in caliber. Limited views of the upper abdomen show changes of cholecystectomy. There are no suspicious osseous lesions. IMPRESSION: 1. No acute abnormality in the chest. Dictated by: Dictated on workstation # [id number]
== END ==
LOC: RAD 09:45
PROVIDERS: ATTEND Internal Medicine
DX: I27.20 Pulmonary hypertension, unspecified (principal); E78.00 Pure hypercholesterolemia, unspecified; R74.8 Abnormal levels of other serum enzymes
CPT/HCPCS: 36415; 71260; 80053; 82550; 84443; 85025; 85652; 86141

== ENCOUNTER → 2022-08-30 | Outpatient (CLI) | payer BC ==
[~2022-08-30] MED LIST changes: -CATHETER FLUSH 10 ML SYR IV PRN; -IOHEXOL 350 MG/ML 100 ML (OMNIPAQUE 350) VIAL IV ONE; -NS 100 ML (IVPB) BAG IV ONE
[2022-08-30 13:10] LABS: BASOPHILS # (AUTO) 0.1 10^3/uL (0.0-0.1); BASOPHILS % (AUTO) 1 % (0-10); EOSINOPHILS # (AUTO) 0.2 10^3/uL (0.0-0.3); EOSINOPHILS % (AUTO) 3 % (0-10); HEMATOCRIT 41 % (35-52); HEMOGLOBIN 13.7 g/dL (11.5-16.0); LYMPHOCYTES # (AUTO) 2.2 10^3/uL (1.0-4.0); LYMPHOCYTES % (AUTO) 30 % (12-44); MEAN CORPUSCULAR HEMOGLOBIN 30 pg (25-34); MEAN CORPUSCULAR HGB CONC 33 g/dL (32-36); MEAN CORPUSCULAR VOLUME 91 fL (80-99); MEAN PLATELET VOLUME 9.5 fL (9.0-12.2); MONOCYTES # (AUTO) 0.5 10^3/uL (0.0-1.0); MONOCYTES % (AUTO) 7 % (0-12); NEUTROPHILS # (AUTO) 4.2 10^3/uL (1.8-7.8); NEUTROPHILS % (AUTO) 59 % (42-75); PLATELET COUNT 294 10^3/uL (130-400); WHITE BLOOD COUNT 7.1 10^3/uL (4.3-11.0)
[2022-08-30 13:33] LABS: ALBUMIN 4.2 GM/DL (3.2-4.5); POTASSIUM 4.4 MMOL/L (3.6-5.0)
[2022-08-30 13:34] LABS: CALCIUM 9.3 MG/DL (8.5-10.1)
[2022-08-30 13:36] LABS: TOTAL PROTEIN 7.6 GM/DL (6.4-8.2)
[2022-08-30 13:37] LABS: BILIRUBIN,TOTAL 0.6 MG/DL (0.1-1.0)
[2022-08-30 13:39] LABS: CREATININE SERUM 0.86 MG/DL (0.60-1.30)
== END ==
LOC: RAD 12:44
PROVIDERS: ATTEND Internal Medicine
DX: Z00.00 Encounter for general adult medical examination without abnormal findings (principal); E78.00 Pure hypercholesterolemia, unspecified; E78.1 Pure hyperglyceridemia; D50.9 Iron deficiency anemia, unspecified
CPT/HCPCS: 36415; 80053; 80061; 82728; 83540; 83550; 84443; 85025

== ENCOUNTER → 2022-09-11 | Outpatient (CLI) | payer BC ==
--- NOTE | 2022-09-12 11:49 | Diagnostic Imaging Report ---
Bilateral screening mammogram with CAD. This study was compared to the prior exams of 09/05/2021, 09/02/2020 and 05/30/2019. At this time there are no current complaints. There are scattered fibroglandular densities in both breasts which could obscure a lesion. On the MLO view of the right breast in the midportion of the breast approximately 7-8 cm deep to the nipple, there is a 8 mm asymmetry. There is no definite corresponding abnormalities seen on the craniocaudad view. This may be secondary to superimposition but this asymmetry seems to persist on the tomographic images. I would recommend that a compression view of this area be obtained in the MLO projection as well as a true lateral view and repeat craniocaudad view. Ultrasound should be performed as well. The left breast is unchanged. Impression : Additional mammographic views and ultrasound of the right breast would be recommended for further study. ACR BI-RADS Category 0: Incomplete. (Needs additional imaging evaluation). Result letter will be mailed to the patient. Note: At least 10% of breast cancer is not imaged by mammography. Dictated by: Dictated on workstation # [id number]
== END ==
LOC: RAD 11:00
PROVIDERS: ATTEND Internal Medicine
DX: Z12.31 Encounter for screening mammogram for malignant neoplasm of breast (principal)
CPT/HCPCS: 77063; 77067

== ENCOUNTER → 2022-10-02 | Outpatient (CLI) | payer BC ==
--- NOTE | 2022-10-02 13:22 | Diagnostic Imaging Report ---
INDICATION: Right breast density. Patient presents for additional views. COMPARISON: Correlation is made with the screening study from 09/11/2022. TECHNIQUE: Unilateral right 2D and 3D diagnostic mammography was performed. This included spot compression ML and conventional 90 degree lateral views. FINDINGS: Additional views fail to demonstrate a discrete mass. The area of density noted on the screening study resolves with additional imaging and is most consistent with superimposed fibroglandular tissue. No suspicious microcalcifications are seen. IMPRESSION: Additional views fail to demonstrate a discrete mass. The density noted on the screening study most likely represented superimposed tissue. The patient may return to routine annual screening mammography. ACR BI-RADS Category 1: Negative. Result letter will be mailed to the patient. Note: At least 10% of breast cancer is not imaged by mammography. Dictated on workstation # [id number]
== END ==
LOC: RAD 12:47
PROVIDERS: ATTEND Internal Medicine
DX: N63.10 Unspecified lump in the right breast, unspecified quadrant (principal)
CPT/HCPCS: 77065; G0279

== ENCOUNTER → 2023-03-07 | Outpatient (CLI) | payer BC ==
[2023-03-07 16:10] LABS: ALBUMIN 4.2 GM/DL (3.2-4.5); BILIRUBIN,TOTAL 0.4 MG/DL (0.1-1.0); CALCIUM 9.2 MG/DL (8.5-10.1); CREATININE SERUM 0.81 MG/DL (0.60-1.30); POTASSIUM 4.2 MMOL/L (3.6-5.0); TOTAL PROTEIN 7.1 GM/DL (6.4-8.2)
[2023-03-07 16:12] LABS: BASOPHILS % (AUTO) 1 % (0-10); EOSINOPHILS # (AUTO) 0.2 10^3/uL (0.0-0.3); EOSINOPHILS % (AUTO) 4 % (0-10); HEMATOCRIT 41 % (35-52); HEMOGLOBIN 13.7 g/dL (11.5-16.0); LYMPHOCYTES # (AUTO) 1.4 10^3/uL (1.0-4.0); LYMPHOCYTES % (AUTO) 31 % (12-44); MEAN CORPUSCULAR HEMOGLOBIN 30 pg (25-34); MEAN CORPUSCULAR HGB CONC 34 g/dL (32-36); MEAN CORPUSCULAR VOLUME 91 fL (80-99); MONOCYTES # (AUTO) 0.4 10^3/uL (0.0-1.0); MONOCYTES % (AUTO) 8 % (0-12); NEUTROPHILS # (AUTO) 2.6 10^3/uL (1.8-7.8); NEUTROPHILS % (AUTO) 56 % (42-75); PLATELET COUNT 259 10^3/uL (130-400); WHITE BLOOD COUNT 4.6 10^3/uL (4.3-11.0)
== END ==
LOC: LAB 09:58
PROVIDERS: ATTEND Internal Medicine
DX: Z00.00 Encounter for general adult medical examination without abnormal findings (principal); D50.9 Iron deficiency anemia, unspecified; E78.00 Pure hypercholesterolemia, unspecified; E78.1 Pure hyperglyceridemia
CPT/HCPCS: 36415; 80053; 80061; 82728; 83540; 83550; 84443; 85025

== ENCOUNTER → 2023-03-14 | Outpatient (CLI) | payer BC ==
--- NOTE | 2023-03-14 15:03 | Diagnostic Imaging Report ---
INDICATION: Left breast pain. TECHNIQUE: Sonographic interrogation of the left breast at the area of pain was performed. This is in the upper portion. FINDINGS: No sonographic abnormality is seen. No solid or cystic mass is identified. There is a small lymph node in the left axilla which is normal in size at 1.3 x 0.8 cm. IMPRESSION: No sonographic abnormality is identified. ACR BI-RADS Category 1: Negative. Dictated by: Dictated on workstation # [id number]
== END ==
LOC: RAD 13:13
PROVIDERS: ATTEND Nurse Practitioner Women's Health
DX: N64.4 Mastodynia (principal)
CPT/HCPCS: 76641

== ENCOUNTER → 2023-10-03 | Outpatient (CLI) | payer BC ==
--- NOTE | 2023-10-04 09:49 | Diagnostic Imaging Report ---
INDICATION: Routine screening. COMPARISON: 09/11/2022 and 09/05/2021. TECHNIQUE: 2D and 3D bilateral screening mammography was performed with CAD. FINDINGS: Scattered fibroglandular densities are identified bilaterally. The parenchymal pattern is stable. No mass or malignant-appearing microcalcifications are identified. The axillae are unremarkable. IMPRESSION: No mammographic features suspicious for malignancy are identified. ACR BI-RADS Category 1: Negative. Result letter will be mailed to the patient. Note: At least 10% of breast cancer is not imaged by mammography. Dictated by: Dictated on workstation # [id number]
== END ==
LOC: RAD 15:30
PROVIDERS: ATTEND Internal Medicine
DX: Z12.31 Encounter for screening mammogram for malignant neoplasm of breast (principal)
CPT/HCPCS: 77063; 77067